=== PATIENT | male | born 1975 | race Caucasian/White ===

== ENCOUNTER → 2020-05-11 10:16 | Outpatient (BNVA) | payer OTHER, SELFPAY | PROVIDERS: Visit Provider Nurse Practitioner Family | DX: M25.561 Pain in right knee (principal) | CPT/HCPCS: 73562 ==

== ENCOUNTER 2020-05-17 13:56 | Outpatient (CLI) | payer OTHER, SELFPAY ==
--- NOTE | 2020-05-17 14:49 | MR_ITS ---
WS: [id number] MRI RIGHT KNEE NONCONTRAST TECHNIQUE: Axial PD, coronal PD fat sat, coronal PD, sagittal PD, and sagittal PD fat-sat images obta ined. CLINICAL INFORMATION: RIGHT KNEE JOINT PAIN COMPARISON: None. FINDINGS: Distal quadriceps and patella tendons are intact. Hypertrophic patella. Normal ACL and PCL. Medial an d lateral meniscus are normal in appearance. Chronic intrasubstance signal abnormality. No acute appe aring meniscal tears. Mild chondromalacia patella. Normal medial and lateral patellar retinaculum. Normal medial and latera l collateral ligaments. Normal popliteal fossa. Hypertrophic patella. Mild joint space narrowing of t he medial joint compartment with mild chondromalacia. MR/MR knee RT wo con* [id number] IMPRESSION: 1. Normal ACL and PCL. 2. Medial and lateral meniscus are normal in appearance. No acute appearing me niscal tears. 3. Mild prepatellar and infrapatellar soft tissue edema. Hypertrophic patella. 4. Mild chondromalacia patella. 5. Normal medial and lateral collateral ligaments.
== END 2020-05-17 13:57 | disposition home or self-care (01) ==
LOC: RADWPI 14:02
PROVIDERS: PCP Nurse Practitioner Family; Visit Provider Nurse Practitioner Family
DX: M22.41 Chondromalacia patellae, right knee (principal); R60.0 Localized edema
CPT/HCPCS: 73721

== ENCOUNTER 2021-11-22 12:00 | Outpatient (CLI) | payer OTHER, SELFPAY | END 2021-11-22 12:01 | disposition home or self-care (01) | LOC: SLEEP 11-23 14:55 | PROVIDERS: PCP Nurse Practitioner Family; Visit Provider Internal Medicine | DX: R40.0 Somnolence (principal); G47.33 Obstructive sleep apnea (adult) (pediatric); R09.02 Hypoxemia | CPT/HCPCS: G0399 ==